=== PATIENT | female | born 1980 | race Two or more races ===

== ENCOUNTER 2022-10-28 09:57 | Outpatient (CLI) | payer BC, SELFPAY ==
--- NOTE | 2022-10-28 11:15 | MM_ITS ---
WS: [id number] DIAGNOSTIC BILATERAL DIGITAL BREAST TOMOSYNTHESIS MAMMOGRAPHY WITH CAD Bilateral breast ultrasound, limited HISTORY: LT BREAST MASS COMPARISON: None available. At this time we are unable to obtain prior mammograms. TECHNIQUE: Bilateral craniocaudad, mediolateral oblique, and mediolateral views are submitted with to mosynthjose and SM. Spot compression LEFT CC and MLO. Computer aided detection utilized. Breast composition: The breasts are heterogeneously dense, which may obscure small masses. Partially obscured mass in the medial LEFT breast at a middle depth measures 2.5 x 2.6 cm. Mass near 10:00. No additional masses are identified. Mass corresponds to the area of pain. Normal-appearing lymph nodes in the axilla. LEFT breast ultrasound, limited. Bilateral axillary ultrasound. LEFT breast: 11:00, 1 cm from the nipple is a well-circumscribed simple cyst measuring 2.4 x 1.8 x 2. 5 cm. This is 1 cm from the nipple and corresponds to the palpable abnormality. There are additional cysts at 1:00. No solid mass. Benign axillary lymph nodes. RIGHT breast: Benign lymph nodes in the axilla. No enlarged lymph nodes. MM/[id number] IMPRESSION: BI-RADS: 2-Benign FOLLOW UP: 1 Year Follow-up 1. Palpable area LEFT breast corresponds to a large simple cyst at 11:00. 2. Bilateral benign axillary lymph nodes.
== END 2022-10-28 09:58 | disposition home or self-care (01) ==
PROVIDERS: PCP Nurse Practitioner Family; Visit Provider Nurse Practitioner Family
DX: N60.02 Solitary cyst of left breast (principal)
CPT/HCPCS: 76642; 77062; G0279

== ENCOUNTER 2022-11-23 09:56 | Outpatient (CLI) | payer BC, SELFPAY ==
--- NOTE | 2022-11-23 10:08 | US_ITS ---
WS: [id number] ULTRASOUND-GUIDED LEFT BREAST CYST ASPIRATION. CLINICAL INFORMATION: ABNORMAL MAMMO/L BREAST PAIN/BREAST CYST COMPARISON: Ultrasound October 28, 2022. FINDINGS: The procedure including risks, benefits, and complications were discussed with the patient who agreed to proceed. Using sterile technique patient was prepped and draped in the usual sterile fashion. Aft er 1% lidocaine utilizing real-time ultrasound guidance the 3 simple cysts at the 11:00 position 1 cm from the nipple were aspirated. A 4 [place] Yueh catheter and 18-gauge needle were utilized. No immed iate complications. Cytology demonstrates normal cyst contents. US/[id number] IMPRESSION: 1. Uncomplicated ultrasound-guided LEFT breast cyst aspiration x3 . 2. The pathology is concordant with benign cyst contents. BI-RADS: 2-Benign FOLLOW UP: 1 Year Follow-up
== END 2022-11-23 09:57 | disposition home or self-care (01) ==
LOC: RAD 09:59
PROVIDERS: PCP Nurse Practitioner Family; Visit Provider Nurse Practitioner Family
DX: N60.02 Solitary cyst of left breast (principal)
CPT/HCPCS: 19000; 76942; 88112; 88305; 89050

== ENCOUNTER 2023-01-01 11:15 | Emergency (ER) | payer BC, SELFPAY ==
[2023-01-01 11:33] VITALS: BP 137/89; PULSE 67; RESP 16; TEMP 36.6; O2SAT 98; BMI 27.2
--- NOTE | 2023-01-01 11:37 | W.ED.EXTPRO ---
HPI - Extremity Problem General: Chief complaint: Extremity Injury, Upper Stated complaint: Pain in right hand Time Seen by Provider: 01/01/23 11:20 Source: patient Mode of arrival: ambulatory Limitations: no limitations History of Present Illness: 42-year-old female presents to the ER today for worsening rheumatoid arthritis pain. Patient reports she was recently diagnosed with rheumatoid arthritis and is waiting to get into the [facility] in February. Patient reports the pain in her hand is continuing to worsen despite taking hydroqluoroquine, prednisone, and NSAIDs. Patient reports she has been taking three 800 mg ibuprofen 3-4 times a day. She reports she is having a lot of upset stomach but denies any vomiting of blood or black stools. Patient reports her PCP seems to be getting tired of her calling about the pain. 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 Patient has not tried methotrexate at this time. Review of Systems General: Reports: 10 or more systems reviewed and unremarkable except in HPI and below Physical Exam Const: COMMON NORMALS: no acute distress, average body habitus, patient oriented x3, no limitations, healthy appearing, alert and well nourished Resp: COMMON NORMALS: normal respiratory effort EFFORT & INSPECTION: Yes able to speak in complete sentences Cardio: COMMON NORMALS: regular rate and regular rhythm RATE: regular rate RHYTHM: regular rhythm GI: COMMON NORMALS: Normal to inspection, nondistended, normoactive bowel sounds present Extremity: NARRATIVE EXTREMITY EXAM: Patient has not noted to have any enlargement of joints of her hands or wrists. She does appear to have a mild bursitis of the right olecranon. 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 She is currently taking way too many of her medications specifically the NSAIDs. She does have upset stomach with taking them and is doing 20 mg of omeprazole. She has a PCP but feels she is calling them too much and that they do not want to see her. No lab work is necessary today as nothing has really changed. We will adjust some medications. Vital Signs: Vital signs: Vital Signs Temperature 97.9 F 01/01/23 11:33 Pulse Rate 67 01/01/23 11:33 Respiratory Rate 16 01/01/23 11:33 Blood Pressure 137/89 01/01/23 11:33 Pulse Oximetry 98 01/01/23 11:33 MDM - Extremity (Nontraumatic) Medical Decision Making I had an in-depth discussion with patient today regarding max doses of medications. I am going to have her stop the NSAID she is taking at home including the Celebrex, ibuprofen, and [id number] NSAIDs. We will do ketorolac for 3 days. After that patient is to take 800 mg max 4 times daily. Patient was also not taking the prednisone as prescribed. She had combined pill bottles which were different doses so it is unknown how much she was actually taking. She should stop those prednisone tabs that she has at home and we will start her on a 2-week taper at 40 mg daily and tapering down. We will also increase patient's omeprazole to 40 mg daily given the incorrect dosing of NSAIDs she has been doing. Patient needs to call her PCP and get in next week. We did discuss that she might benefit from methotrexate versus hydrochloroquine. I also recommended topical Voltaren gel to be used on joints that were bothersome. For the bursitis patient can apply a tight wrap to help minimize that. Patient verbalized understanding and was in agreement with the treatment plan. Critical Care Time Critical Care Time: Critical Care Time: No Discharge Plan Discharge Patient Disposition: Home Clinical Impression: Rheumatoid arthritis flare Condition: Stable Prescriptions: New prednisone 10 mg tablet 10 mg PO DIRECTED 16 Days Qty: 16 0RF Rx Instructions: 4 tabs x 4 days, then 3 tabs x 4 days, then 2 tabs x 4 days, then 1 tab x 4 days ketorolac 10 mg tablet 10 mg PO Q6H PRN (Reason: pain) 3 Days Qty: 12 0RF omeprazole 20 mg capsule,delayed release(DR/EC) 40 mg PO DAILY Qty: 30 0RF Discharge Orders: Discharge ED (Routine); Ordered 01/01/23 Ordered By: Marie Dotson Referrals: RHONA MAYO APRN [Primary Care Provider] - Discharge Diet: Usual diet Discharge Activity: Increase activity as tolerated Patient Instructions: Opioid Safety, Pain Management Activity Restrictions/Additional Instructions: Take medications as prescribed today according to the bottle. Recommend topical Voltaren gel on joints that are bothersome. Follow-up with PCP in 3 to 5 days. Return to the ER with new or worsening symptoms. Coding Level of Care Code ED Application Support Consultant for Kevin Lowe
== END 2023-01-01 12:17 | disposition home or self-care (01) ==
PROVIDERS: Emergency Provider Physician Assistant; PCP Nurse Practitioner Family
DX: M06.9 Rheumatoid arthritis, unspecified (principal); M71.522 Other bursitis, not elsewhere classified, left elbow
CPT/HCPCS: 99284